=== PATIENT | male | born 1985 | race Caucasian/White ===

== ENCOUNTER 2017-09-14 23:00 | Emergency (ER) | payer BC ==
[~2017-09-14] VITALS: Ht 172.7 cm; Wt 67.8 kg
[~2017-09-14 23:00] MED LIST: (None)3.5 GM OP; GENTAMICIN SULF5 ML OP
[2017-09-14] MEDS ORDERED: ADDERALL20 MG PO (23:15)
[2017-09-14 23:45] VITALS: BP 130/78
[2017-09-14] MEDS ORDERED: GENTAMICIN15 ML/BTL OS (23:46)
== END 2017-09-14 23:52 | disposition home or self-care (01) | DRG 115 ==
LOC: ED 23:00
PROC: 08C9XZZ Extirpation of Matter from Left Cornea, External Approach (ICD-10-PCS; principal; 2017-09-14)
DX: T15.02XA Foreign body in cornea, left eye, initial encounter (principal); F17.220 Nicotine dependence, chewing tobacco, uncomplicated; X58.XXXA Exposure to other specified factors, initial encounter